=== PATIENT | male | born 1990 | race Caucasian/White ===

== ENCOUNTER → 2017-06-30 | Outpatient (CLI) | payer OTHER ==
--- NOTE | 2017-07-01 11:26 | EST ---
EXERCISE STRESS DATE OF SERVICE: 06/30/2017 AGE: 26 SEX: Male HT: 74 WT: 140 PROTOCOL: Mil STAGE: IV DURATION OF EXERCISE: 9:30 HEART RATE REST: 77 BLOOD PRESSURE REST: 146/82 MAXIMUM HEART RATE ACHIEVED: 177 MAXIMUM BLOOD PRESSURE: 183/82 85% MPHR: 167 100% MPHR: 196 METS: 11.1 INDICATIONS: Chest pain. CLINICAL INFORMATION: Patient was exercised for a total period of 9 minutes and 30 seconds. Peak heart rate of 177 was achieved. Maximum blood pressure of 183/82 mmHg was noted. The resting EKG shows normal sinus rhythm with normal OK interval and QRS duration and normal ST-T waves. No ST-segment depression suggestive of ischemia is noted. No dysrhythmias are noted. FINAL IMPRESSION: 1. This exercise test is not suggestive of ischemia. 2. Patient's exercise tolerance is normal. 3. No dysrhythmias are noted. MMODL / IJN: [id number] /
== END | disposition home or self-care (01) ==
LOC: RADNMMAIN 11:01
PROVIDERS: ATTEND Internal Medicine
DX: R07.9 Chest pain, unspecified (principal)
CPT/HCPCS: 93017

== ENCOUNTER 2017-10-20 15:27 | Emergency (ER) | payer OTHER ==
[2017-10-20 16:10] VITALS: RESP 18; TEMP 98.6
--- NOTE | 2017-10-20 16:27 | XR ---
EXAMINATION TYPE: XR chest 2V DATE OF EXAM: 10/20/2017 COMPARISON: 07/02/2001 HISTORY: Chest pain TECHNIQUE: Frontal and lateral views of the chest are obtained. FINDINGS: There is no focal air space opacity. No evidence for pneumothorax. No pleural effusion. The cardiac silhouette size is within normal limits. The osseous structures are grossly intact. IMPRESSION: 1. No acute cardiopulmonary process.
[2017-10-20] MEDS ORDERED: IPRATROPIUM-ALBUTEROL 3 ML NEB INHALATION STA (18:48)
--- NOTE | 2017-10-20 19:10 | ED ---
SOB HPI - General Chief Complaint: Shortness of Breath Stated Complaint: chest pain Time Seen by Provider: 10/20/17 18:44 Source: patient, RN notes reviewed, old records reviewed Mode of arrival: ambulatory Limitations: no limitations - History of Present Illness Initial Comments: This patient is a pleasant 26-year-old male chief complaint of right-sided rib pain whenever he takes a deep breath. He reports that he's been having the symptoms intermittently for the past few months. Patient states that it started again today at 3:00. He denies any nausea or vomiting or abdominal pain. He denies any coughing. Denies any significant shortness of breath only reports that there is some irritation on his right lower rib when he has a deep inhale. Patient otherwise states he is no medical history. He is generally very healthy. - Related Data Previous Rx's Medication Instructions Recorded Albuterol Inhaler [Ventolin Hfa 1 - 2 puff INHALATION Q6HR PRN #1 10/20/17 Inhaler] inhaler Ibuprofen [Motrin] 600 mg PO Q8HR PRN #15 tab 10/20/17 Allergies Allergy/AdvReac Type Severity Reaction Status Date / Time No Known Allergies Allergy Verified 10/20/17 19:02 Review of Systems ROS Statement: Those systems with pertinent positive or pertinent negative responses have been documented in the HPI. ROS Other: All systems not noted in ROS Statement are negative. Past Medical History Additional Past Medical History / Comment(s): chronic migraines and nausea, back pain History of Any Multi-Drug Resistant Organisms: None Reported Past Surgical History: No Surgical Hx Reported Past Psychological History: No Psychological Hx Reported Smoking Status: Current every day smoker Past Alcohol Use History: None Reported Past Drug Use History: Marijuana General Exam - General Exam Comments Initial Comments: This patient is a 26-year-old male. No acute distress. Limitations: no limitations General appearance: alert, in no apparent distress Head exam: Present: atraumatic, normocephalic, normal inspection Eye exam: Present: normal appearance ENT exam: Present: normal exam, mucous membranes moist Neck exam: Present: normal inspection, full ROM. Absent: tenderness, meningismus, lymphadenopathy Respiratory exam: Present: normal lung sounds bilaterally, other (right lower rib tenderess). Absent: respiratory distress, wheezes, rales, rhonchi, stridor Cardiovascular Exam: Present: regular rate, normal rhythm, normal heart sounds. Absent: systolic murmur, diastolic murmur, rubs, gallop, clicks GI/Abdominal exam: Present: soft, normal bowel sounds. Absent: distended, tenderness, guarding, rebound, rigid Extremities exam: Present: normal inspection, full ROM, normal capillary refill. Absent: tenderness, pedal edema, joint swelling, calf tenderness Back exam: Present: normal inspection Neurological exam: Present: alert, oriented X3, CN II-XII intact Psychiatric exam: Present: normal affect, normal mood Skin exam: Present: warm, dry, intact, normal color. Absent: rash Course Vital Signs 10/20/17 10/20/17 10/20/17 16:07 19:20 19:38 Temperature 98.6 F Pulse Rate 69 72 72 Respiratory 18 Rate Blood Pressure 131/78 O2 Sat by Pulse 100 Oximetry 10/20/17 20:03 Temperature Pulse Rate 79 Respiratory 18 Rate Blood Pressure 111/55 O2 Sat by Pulse 99 Oximetry Medical Decision Making - Medical Decision Making This patient is a pleasant 26-year-old male presents emergency from station plate of intermittent right rib pain. Seem to start today at 3:00 today. He is given a breathing treatment reports it seemed to help at this time. He is also concerned of his blood levels he was concerned he may be slightly anemic. Patient's CBC was within normal limits, Compazine has no acute changes. Patient chest x-rays reviewed and negative for any acute process. Discussed at this time at least pain is most is felt to related or possibly slightly asthmatic. We'll discharge him with inhaler. Discussed that he should follow- up with primary care provider as well. All questions were answered and return parameters were discussed. - Lab Data Result diagrams: 10/20/17 19:40 10/20/17 19:40 Lab Results 10/20/17 10/20/17 Range/Units 19:40 19:40 WBC 7.2 (3.8-10.6) k/uL RBC 5.49 (4.30-5.90) m/uL Hgb 15.4 (13.0-17.5) gm/dL Hct 45.5 (39.0-53.0) % MCV 82.9 (80.0-100.0) fL MCH 28.1 (25.0-35.0) pg MCHC 33.8 (31.0-37.0) g/dL RDW 12.2 (11.5-15.5) % Plt Count 225 (150-450) k/uL Neutrophils % 67 % Lymphocytes % 23 % Monocytes % 6 % Eosinophils % 1 % Basophils % 1 % Neutrophils # 4.9 (1.3-7.7) k/uL Lymphocytes # 1.6 (1.0-4.8) k/uL Monocytes # 0.4 (0-1.0) k/uL Eosinophils # 0.1 (0-0.7) k/uL Basophils # 0.0 (0-0.2) k/uL Sodium 142 (137-145) mmol/L Potassium 4.1 (3.5-5.1) mmol/L Chloride 106 (98-107) mmol/L Carbon Dioxide 23 (22-30) mmol/L Anion Gap 13 mmol/L BUN 11 (9-20) mg/dL Creatinine 0.62 L (0.66-1.25) mg/dL Est GFR (CKD-EPI)AfAm >90 (>60 ml/min/1.73 sqM) Est GFR (CKD-EPI)NonAf >90 (>60 ml/min/1.73 sqM) Glucose 94 (74-99) mg/dL Calcium 10.1 (8.4-10.2) mg/dL Total Bilirubin 0.7 (0.2-1.3) mg/dL AST 22 (17-59) U/L ALT 32 (21-72) U/L Alkaline Phosphatase 57 (38-126) U/L Total Protein 7.5 (6.3-8.2) g/dL Albumin 4.7 (3.5-5.0) g/dL - Radiology Data Radiology results: report reviewed Chest x-ray is reviewed and negative for any acute process. Disposition Clinical Impression: Right-sided chest pain Disposition: HOME SELF-CARE Condition: Good Instructions: Chest Wall Pain (ED), Bronchospasm (ED) Additional Instructions: Patient advised to follow-up with primary care provider. Return to emergency department if any alarming signs or symptoms occur. Prescriptions: Albuterol Inhaler [Ventolin Hfa Inhaler] 1 - 2 puff INHALATION Q6HR PRN #1 inhaler PRN Reason: short of breath Ibuprofen [Motrin] 600 mg PO Q8HR PRN #15 tab PRN Reason: Pain Referrals: So Bueno MD [Primary Care Provider] - 1-2 days Time of Disposition: 20:33
[2017-10-20 19:51] LABS: Basophils % (A) 1 %; Eosinophils # (A) 0.1 k/uL (0-0.7); Eosinophils % (A) 1 %; HCT 45.5 % (39.0-53.0); HGB 15.4 gm/dL (13.0-17.5); Lymphocytes # (A) 1.6 k/uL (1.0-4.8); Lymphocytes % (A) 23 %; MCH 28.1 pg (25.0-35.0); MCHC 33.8 g/dL (31.0-37.0); MCV 82.9 fL (80.0-100.0); Mean Platelet Volume 6.8; Monocytes # (A) 0.4 k/uL (0-1.0); Monocytes % (A) 6 %; Neutrophils # (A) 4.9 k/uL (1.3-7.7); Neutrophils % (A) 67 %; Platelet Count 225 k/uL (150-450); RBC 5.49 m/uL (4.30-5.90); RDW 12.2 % (11.5-15.5); WBC 7.2 k/uL (3.8-10.6)
[2017-10-20 20:00] LABS: ALT 32 U/L (21-72); AST 22 U/L (17-59); Albumin 4.7 g/dL (3.5-5.0); Alkaline Phosphatase 57 U/L (38-126); Anion Gap 13 mmol/L; Blood Urea Nitrogen 11 mg/dL (9-20); Calcium 10.1 mg/dL (8.4-10.2); Carbon Dioxide 23 mmol/L (22-30); Chloride 106 mmol/L (98-107); Glucose 94 mg/dL (74-99); Potassium 4.1 mmol/L (3.5-5.1); Sodium 142 mmol/L (137-145); Total Bilirubin 0.7 mg/dL (0.2-1.3); Total Protein 7.5 g/dL (6.3-8.2)
[2017-10-20 20:04] VITALS: BP 111/55; PULSE 79
== END 2017-10-20 20:44 | disposition home or self-care (01) ==
LOC: EC 15:27
DX: R07.81 Pleurodynia (principal); R06.02 Shortness of breath; F17.200 Nicotine dependence, unspecified, uncomplicated
CPT/HCPCS: 36415; 71046; 80053; 85025; 94640; 99285

== ENCOUNTER 2018-07-18 07:02 | Emergency (ER) | payer OTHER ==
--- NOTE | 2018-07-18 07:46 | XR ---
EXAMINATION TYPE: XR chest 2V DATE OF EXAM: 07/18/2018 HISTORY: cough. REFERENCE: Previous study dated 10/20/2017. FINDINGS: The lungs are clear. Pleural space are clear. The heart is not enlarged. IMPRESSION: NORMAL CHEST.
--- NOTE | 2018-07-18 07:51 | ED ---
General Adult HPI - General Chief complaint: Chest Pain Stated complaint: left side pain Time Seen by Provider: 07/18/18 07:14 Source: patient, RN notes reviewed Mode of arrival: ambulatory Limitations: no limitations - History of Present Illness Initial comments: Patient is a 27-year-old male with no significant past medical history, presenting to the emergency room today with chief complaint of left chest pain. Patient states that pain started yesterday morning after waking up. States he was just sitting when he began to feel it. He states the pain seems to come and go. Describes it as a "sharp" type pain. States located in the left axilla area. Patient denies any injury or any trauma. Does admit that is worse with certain movements or on palpation. Patient denies any other complaints or symptoms. Patient denies any recent fever, chills, shortness of breath, back pain, abdominal pain, nausea or vomiting, numbness or tingling, headaches or visual changes, or any other complaints. - Related Data Previous Rx's Medication Instructions Recorded Albuterol Inhaler [Ventolin Hfa 1 - 2 puff INHALATION Q6HR PRN #1 10/20/17 Inhaler] inhaler Ibuprofen [Motrin] 600 mg PO Q8HR PRN #15 tab 10/20/17 Ibuprofen [Motrin] 600 mg PO Q6HR PRN #40 day 07/18/18 Ketoconazole [Ketoconazole 2%] 1 applic TOPICAL BID #1 tube 07/18/18 Allergies Allergy/AdvReac Type Severity Reaction Status Date / Time No Known Allergies Allergy Verified 07/18/18 07:11 Review of Systems ROS Statement: Those systems with pertinent positive or pertinent negative responses have been documented in the HPI. ROS Other: All systems not noted in ROS Statement are negative. Past Medical History Additional Past Medical History / Comment(s): chronic migraines and nausea, back pain History of Any Multi-Drug Resistant Organisms: None Reported Past Surgical History: No Surgical Hx Reported Past Psychological History: No Psychological Hx Reported Smoking Status: Current every day smoker Past Alcohol Use History: None Reported Past Drug Use History: Marijuana General Exam - General Exam Comments Initial Comments: General: The patient is awake and alert, in no distress, and does not appear acutely ill. Eye: Pupils are equal, round and reactive to light, extra-ocular movements are intact. No nystagmus. There is normal conjunctiva bilaterally. No signs of icterus. Ears, nose, mouth and throat: There are moist mucous membranes and no oral lesions. Neck: The neck is supple, there is no tenderness or JVD. Cardiovascular: There is a regular rate and rhythm. No murmur, rub or gallop is appreciated. Respiratory: Lungs are clear to auscultation, respirations are non-labored, breath sounds are equal. No wheezes, stridor, rales, or rhonchi. Musculoskeletal: Normal ROM. Tender to palpation over the left side of the axilla approximately the fourth rib area laterally.. Strength 5/5. Sensation intact. Pulses equal bilaterally 2+. Neurological: A&O x 3. CN II-XII intact, There are no obvious motor or sensory deficits. Coordination appears grossly intact. Speech is normal. Skin: Skin is warm and dry and intact. Patient does have circular lesion seen to the right upper extremity and also faintly to the left side of the chest wall. It is red scaly patch. Psychiatric: Cooperative, appropriate mood & affect, normal judgment. Limitations: no limitations Course Vital Signs 07/18/18 07:08 Temperature 97.8 F Pulse Rate 84 Respiratory 20 Rate Blood Pressure 129/86 O2 Sat by Pulse 99 Oximetry EKG Findings - EKG Comments: EKG Findings:: EKG performed at 0718: Shows normal sinus rhythm at 64 bpm. AK interval 126. QRS 82. QT/QTC 368/379. No acute ST change. Medical Decision Making - Medical Decision Making Patient's x-ray reviewed negative for any acute abnormalities. Since labs reviewed. EKG showing no acute changes. Patient's pain reproduced on palpation. Patient feeling better after Toradol. Patient will be discharged home continue anti-inflammatories. - Lab Data Result diagrams: 07/18/18 08:06 07/18/18 08:06 Lab Results 07/18/18 07/18/18 07/18/18 Range/Units 08:06 08:06 08:06 WBC 5.0 (3.8-10.6) k/uL RBC 5.83 (4.30-5.90) m/uL Hgb 16.5 (13.0-17.5) gm/dL Hct 49.0 (39.0-53.0) % MCV 84.1 (80.0-100.0) fL MCH 28.4 (25.0-35.0) pg MCHC 33.7 (31.0-37.0) g/dL RDW 12.5 (11.5-15.5) % Plt Count 310 (150-450) k/uL Neutrophils % 68 % Lymphocytes % 21 % Monocytes % 6 % Eosinophils % 2 % Basophils % 1 % Neutrophils # 3.4 (1.3-7.7) k/uL Lymphocytes # 1.1 (1.0-4.8) k/uL Monocytes # 0.3 (0-1.0) k/uL Eosinophils # 0.1 (0-0.7) k/uL Basophils # 0.1 (0-0.2) k/uL Sodium 141 (137-145) mmol/L Potassium 5.0 (3.5-5.1) mmol/L Chloride 107 (98-107) mmol/L Carbon Dioxide 27 (22-30) mmol/L Anion Gap 7 mmol/L BUN 11 (9-20) mg/dL Creatinine 0.76 (0.66-1.25) mg/dL Est GFR (CKD-EPI)AfAm >90 (>60 ml/min/1.73 sqM) Est GFR (CKD-EPI)NonAf >90 (>60 ml/min/1.73 sqM) Glucose 93 (74-99) mg/dL Calcium 10.3 H (8.4-10.2) mg/dL Total Creatine Kinase 32 L (55-170) U/L CK-MB (CK-2) <0.2 (0.0-2.4) ng/mL CK-MB (CK-2) Rel Index Troponin I <0.012 (0.000-0.034) ng/mL Disposition Clinical Impression: Chest wall pain, Tinea corporis Disposition: HOME SELF-CARE Condition: Good Instructions: Chest Wall Pain (ED) Additional Instructions: Please use medication as discussed. Please follow-up with family doctor in the next 2 days. Please return to emergency room if the symptoms increase or worsen or for any other concerns. Prescriptions: Ibuprofen [Motrin] 600 mg PO Q6HR PRN #40 day PRN Reason: Pain Ketoconazole [Ketoconazole 2%] 1 applic TOPICAL BID #1 tube Is patient prescribed a controlled substance at d/c from ED?: No Referrals: So Bueno MD [Primary Care Provider] - 1-2 days Time of Disposition: 09:58
[2018-07-18] MEDS ORDERED: KETOROLAC 30 MG/ML 1 ML VIAL IVP STA (07:52)
[2018-07-18 08:45] LABS: Basophils # (A) 0.1 k/uL (0-0.2); Basophils % (A) 1 %; Eosinophils # (A) 0.1 k/uL (0-0.7); Eosinophils % (A) 2 %; HGB 16.5 gm/dL (13.0-17.5); Lymphocytes # (A) 1.1 k/uL (1.0-4.8); Lymphocytes % (A) 21 %; MCH 28.4 pg (25.0-35.0); MCHC 33.7 g/dL (31.0-37.0); MCV 84.1 fL (80.0-100.0); Mean Platelet Volume 6.6; Monocytes # (A) 0.3 k/uL (0-1.0); Monocytes % (A) 6 %; Neutrophils # (A) 3.4 k/uL (1.3-7.7); Neutrophils % (A) 68 %; Platelet Count 310 k/uL (150-450); RBC 5.83 m/uL (4.30-5.90); RDW 12.5 % (11.5-15.5)
[2018-07-18 08:57] LABS: Anion Gap 7 mmol/L; Blood Urea Nitrogen 11 mg/dL (9-20); Calcium 10.3 mg/dL (8.4-10.2); Carbon Dioxide 27 mmol/L (22-30); Chloride 107 mmol/L (98-107); Glucose 93 mg/dL (74-99); Sodium 141 mmol/L (137-145)
[2018-07-18 09:16] LABS: Creatine Kinase 32 U/L (55-170)
[2018-07-18 09:29] LABS: Creatine Kinase MB <0.2 ng/mL (0.0-2.4); Troponin I <0.012 ng/mL (0.000-0.034)
[2018-07-18 10:17] VITALS: BP 128/94; PULSE 75; RESP 16; TEMP 98
== END 2018-07-18 10:17 | disposition home or self-care (01) ==
LOC: EC 07:02
DX: R07.89 Other chest pain (principal); B35.4 Tinea corporis; F17.200 Nicotine dependence, unspecified, uncomplicated
CPT/HCPCS: 36415; 93005; 80048; 82550; 82553; 84484; 85025; 71046; 99285; 96374; J1885

== ENCOUNTER 2022-07-28 12:17 | Emergency (ER) | payer OTHER ==
[2022-07-28 12:42] VITALS: RESP 16
--- NOTE | 2022-07-28 12:51 | ED ---
General Adult HPI - General Chief complaint: Extremity Injury, Upper Stated complaint: Hand injury Time Seen by Provider: 07/28/22 12:44 Source: patient, RN notes reviewed Mode of arrival: ambulatory Limitations: no limitations - History of Present Illness Initial comments: 31-year-old male with no significant past medical history presents to the emergency department with right hand pain after he tripped and fell versus This morning. He notes he tripped approximately 30 minutes prior to arrival. He has not tried Tylenol or Motrin. Range of motion secondary to pain. Denies numbness tingling. Denies hitting his head, loss of consciousness, anticoagulant use - Related Data Previous Rx's Medication Instructions Recorded Albuterol Inhaler [Ventolin Hfa 1 - 2 puff INHALATION Q6HR PRN #1 10/20/17 Inhaler] inhaler Ibuprofen [Motrin] 600 mg PO Q8HR PRN #15 tab 10/20/17 Ibuprofen [Motrin] 600 mg PO Q6HR PRN #40 day 07/18/18 Ketoconazole [Ketoconazole 2%] 1 applic TOPICAL BID #1 tube 07/18/18 Allergies Allergy/AdvReac Type Severity Reaction Status Date / Time No Known Allergies Allergy Verified 07/28/22 12:40 Review of Systems ROS Statement: Those systems with pertinent positive or pertinent negative responses have been documented in the HPI. ROS Other: All systems not noted in ROS Statement are negative. Past Medical History Additional Past Medical History / Comment(s): chronic migraines and nausea, back pain History of Any Multi-Drug Resistant Organisms: None Reported Past Surgical History: No Surgical Hx Reported Past Psychological History: No Psychological Hx Reported Past Alcohol Use History: None Reported Past Drug Use History: Marijuana General Exam Limitations: no limitations General appearance: alert, in no apparent distress Head exam: Present: atraumatic, normocephalic, normal inspection Eye exam: Present: normal appearance, PERRL, EOMI. Absent: scleral icterus, conjunctival injection, periorbital swelling ENT exam: Present: normal exam, mucous membranes moist Neck exam: Present: normal inspection. Absent: tenderness, meningismus, lymphadenopathy Respiratory exam: Present: normal lung sounds bilaterally. Absent: respiratory distress, wheezes, rales, rhonchi, stridor Cardiovascular Exam: Present: regular rate, normal rhythm, normal heart sounds. Absent: systolic murmur, diastolic murmur, rubs, gallop, clicks GI/Abdominal exam: Present: soft, normal bowel sounds. Absent: distended, tenderness, guarding, rebound, rigid Extremities exam: Present: normal capillary refill. Absent: normal inspection (R hand with edema to 5th metacarpal, tenderness to palpation, limited ROM secondary to pain. 2+ radial pulses, distal NVI. No crepitus. ), full ROM, tenderness, pedal edema, joint swelling, calf tenderness Back exam: Present: normal inspection Neurological exam: Present: alert, oriented X3, CN II-XII intact Psychiatric exam: Present: normal affect, normal mood Skin exam: Present: warm, dry, intact, normal color. Absent: rash Course Vital Signs 07/28/22 12:41 Temperature 97.9 F Pulse Rate 78 Respiratory 16 Rate Blood Pressure 135/88 O2 Sat by Pulse 97 Oximetry Disposition Clinical Impression: Closed boxer's fracture, Fracture of fifth metacarpal bone of right hand Disposition: HOME SELF-CARE Condition: Stable Additional Instructions: These return to the nearest ER if worsening symptoms of numbness pain Is patient prescribed a controlled substance at d/c from ED?: No Referrals: So Bueno MD [Primary Care Provider] - 1-2 days Reggie Lopez MD [Medical Doctor] - 1-2 days Time of Disposition: 13:30
[2022-07-28] MEDS ORDERED: ACETAMINOPHEN TAB 325 MG TAB PO STA (13:15)
--- NOTE | 2022-07-28 13:15 | XR ---
EXAMINATION TYPE: XR hand complete RT DATE OF EXAM: 07/28/2022 COMPARISON: None HISTORY: Fall on outstretched hand TECHNIQUE: 3 view right hand FINDINGS: There is a distal metadiaphyseal fifth metacarpal fracture with anterior angulation. Hallett ing soft tissue swelling is present. No additional areas suspicious for fractures evident. IMPRESSION: 1. Fracture of the distal fifth metacarpal with anterior angulation of the distal fracture fragment.
[2022-07-28 13:40] VITALS: BP 138/88; PULSE 74; TEMP 98.5
== END 2022-07-28 13:40 | disposition home or self-care (01) ==
LOC: EC 12:17
DX: S62.306A Unspecified fracture of fifth metacarpal bone, right hand, initial encounter for closed fracture (principal); F12.90 Cannabis use, unspecified, uncomplicated; W01.0XXA Fall on same level from slipping, tripping and stumbling without subsequent striking against object, initial encounter
CPT/HCPCS: 29125; 99283

== ENCOUNTER 2022-12-11 20:49 | Emergency (ER) | payer OTHER ==
[2022-12-11 21:00] VITALS: BP 147/82; PULSE 73; RESP 18; TEMP 98.3
--- NOTE | 2022-12-11 21:42 | XR ---
EXAMINATION TYPE: XR chest 2V DATE OF EXAM: 12/11/2022 9:31 PM COMPARISON: Chest radiographs from 07/18/2018 TECHNIQUE: XR chest 2V Frontal and lateral views of the chest. CLINICAL INDICATION:Male, 32 years old with history of fell; FINDINGS: Lungs/Pleura: There is no evidence of pleural effusion, focal consolidation, or pneumothorax. Pulmonary vascularity: Unremarkable. Heart/mediastinum: Cardiomediastinal silhouette is unremarkable. Musculoskeletal: No acute osseous pathology. IMPRESSION: No acute cardiopulmonary disease/process.
--- NOTE | 2022-12-11 22:11 | ED ---
General Adult HPI - General Chief complaint: Shortness of Breath Stated complaint: chest pain Time Seen by Provider: 12/11/22 22:06 Source: patient Mode of arrival: ambulatory Limitations: no limitations - History of Present Illness Initial comments: Patient is a 32-year-old male presenting with chief complaint of left-sided rib pain. Patient states that earlier today he fell and hit the left side of his ribs on his washing machine. He is having pain with deep breaths. He has not taken any analgesic medication. He is having no shortness of breath. No palpitations. - Related Data Previous Rx's Medication Instructions Recorded Albuterol Inhaler [Ventolin Hfa 1 - 2 puff INHALATION Q6HR PRN #1 10/20/17 Inhaler] inhaler Ibuprofen [Motrin] 600 mg PO Q8HR PRN #15 tab 10/20/17 Ibuprofen [Motrin] 600 mg PO Q6HR PRN #40 day 07/18/18 Ketoconazole [Ketoconazole 2%] 1 applic TOPICAL BID #1 tube 07/18/18 Allergies Allergy/AdvReac Type Severity Reaction Status Date / Time No Known Allergies Allergy Verified 12/11/22 21:00 Review of Systems ROS Statement: Those systems with pertinent positive or pertinent negative responses have been documented in the HPI. ROS Other: All systems not noted in ROS Statement are negative. Past Medical History Additional Past Medical History / Comment(s): chronic migraines and nausea, back pain History of Any Multi-Drug Resistant Organisms: None Reported Past Surgical History: No Surgical Hx Reported Past Psychological History: No Psychological Hx Reported Smoking Status: Never smoker Past Alcohol Use History: None Reported Past Drug Use History: Marijuana General Exam Limitations: no limitations General appearance: alert, in no apparent distress Head exam: Present: atraumatic, normocephalic, normal inspection Eye exam: Present: normal appearance, EOMI. Absent: scleral icterus, periorbital swelling Neck exam: Present: normal inspection, full ROM Respiratory exam: Present: normal lung sounds bilaterally, chest wall tenderness. Absent: respiratory distress, wheezes, rales, rhonchi, stridor Cardiovascular Exam: Present: regular rate, normal rhythm, normal heart sounds. Absent: systolic murmur, diastolic murmur, rubs, gallop, clicks Neurological exam: Present: alert, oriented X3, CN II-XII intact Psychiatric exam: Present: normal affect, normal mood Skin exam: Present: warm, dry, intact, normal color. Absent: rash Course Vital Signs 12/11/22 20:57 Temperature 98.3 F Pulse Rate 73 Respiratory 18 Rate Blood Pressure 147/82 O2 Sat by Pulse 98 Oximetry Medical Decision Making - Medical Decision Making Was pt. sent in by a medical professional or institution (, PA, DEVELOPMENT ASSOCIATE, urgent care, hospital, or senior living...) When possible be specific @ -No Did you speak to anyone other than the patient for history (EMS, parent, family, police, friend...)? What history was obtained from this source @ -No Did you review nursing and triage notes (agree or disagree)? Why? @ -I reviewed and agree with nursing and triage notes Were old charts reviewed (outside hosp., previous admission, EMS record, old EKG, old radiological studies, urgent care reports/EKG's, senior living records)? Report findings @ -No old charts were reviewed Differential Diagnosis (chest pain, altered mental status, abdominal pain women, abdominal pain men, vaginal bleeding, weakness, fever, dyspnea, syncope, headache, dizziness, GI bleed, back pain, seizure, CVA, palpatations, mental health, musculoskeletal)? @ -Differential Musculoskeletal Muscular strain, contusion, ligament sprain, fracture, arthritis, septic arthritis, bursitis, cellulitis, muscle spasm, nerve compression, DVT, arterial occlusion, herpes zoster, electrolyte abnormality, tumor.... This is not meant to be in all inclusive list EKG interpreted by me (3pts min.). @ -As above X-rays interpreted by me (1pt min.). @ -X-rays negative for any fracture or acute process CT interpreted by me (1pt min.). @ -None done U/S interpreted by me (1pt. min.). @ -None done What testing was considered but not performed or refused? (CT, X-rays, U/S, labs)? Why? @ -None What meds were considered but not given or refused? Why? @ -None Did you discuss the management of the patient with other professionals (professionals i.e. , CRISTINA, DEVELOPMENT ASSOCIATE, lab, RT, psych nurse, licensed social worker, bag shop worker, teacher, telecommunications officer, correctional case manager)? Give summary @ -No Was smoking cessation discussed for >3mins.? @ -No Was critical care preformed (if so, how long)? @ -No Were there social determinants of health that impacted care today? How? (Homelessness, low income, unemployed, alcoholism, drug addiction, transportation, low edu. Level, literacy, decrease access to med. care, senior living, rehab)? @ -No Was there de-escalation of care discussed even if they declined (Discuss DNR or withdrawal of care, Hospice)? DNR status @ -No What co-morbidities impacted this encounter? (DM, HTN, Smoking, COPD, CAD, Cancer, CVA, ARF, Chemo, Hep., AIDS, mental health diagnosis, sleep apnea, morbid obesity)? @ -None Was patient admitted / discharged? Hospital course, mention meds given and route, prescriptions, significant lab abnormalities, going to OR and other pertinent info. @ -Patient is a 32-year-old male presenting with chief complaint of left-sided rib pain after falling into his washing machine this evening. Physical examination shows chest wall tenderness. Normal lung sounds bilaterally. X-ray shows no evidence of fracture or dislocation. Patient is educated on supportive management at home. Follow-up with PCP. Report back to ER with any new or worsening symptoms. Discussed return parameters and answered all questions. Patient conveyed verbal understanding and agreed to the plan. I discussed this case in detail with my attending Dr. Joseph Undiagnosed new problem with uncertain prognosis? @ -No Drug Therapy requiring intensive monitoring for toxicity (Heparin, Nitro, Insulin, Cardizem)? @ -No Were any procedures done? @ -no Diagnosis/symptom? @ -Rib pain Acute, or Chronic, or Acute on Chronic? @ -Acute Uncomplicated (without systemic symptoms) or Complicated (systemic symptoms)? @ -Uncomplicated Side effects of treatment? @ -No Exacerbation, Progression, or Severe Exacerbation? @ -No Poses a threat to life or bodily function? How? (Chest pain, [place], [place], pneumonia, PE, COPD, DKA, ARF, appy, cholecystitis, CVA, Diverticulitis, Homicidal, Suicidal, threat to staff... and all critical care pts) @ -No Disposition Clinical Impression: Rib pain Disposition: HOME SELF-CARE Condition: Good Instructions (If sedation given, give patient instructions): Rib Fracture (ED) Additional Instructions: Follow-up with PCP. Report back to ER with any new or worsening symptoms. Take Motrin and Tylenol as needed for pain control. Is patient prescribed a controlled substance at d/c from ED?: No Referrals: Lamberto Albert MD [Primary Care Provider] - 1-2 days Time of Disposition: 22:11
[2022-12-11] MEDS ORDERED: LIDOCAINE 5% PATCH TOPICAL SCH (22:15)
== END 2022-12-11 22:41 | disposition home or self-care (01) ==
LOC: EC 20:49
DX: R07.81 Pleurodynia (principal); F12.90 Cannabis use, unspecified, uncomplicated
CPT/HCPCS: 71046; 99284

== ENCOUNTER 2023-04-29 01:47 | Emergency (ER) | payer OTHER ==
[2023-04-29 01:55] VITALS: BP 110/62; PULSE 59; RESP 20; TEMP 98.2
[2023-04-29] MEDS ORDERED: ONDANSETRON 4 MG/2 ML VIAL IVP STA (02:18)
[2023-04-29] MEDS ORDERED: SODIUM CHLORIDE 0.9% 1,000 ML IV STA (02:18)
[2023-04-29] MEDS ORDERED: FAMOTIDINE 20 MG/2 ML VIAL IV STA (02:19)
--- NOTE | 2023-04-29 02:21 | ED ---
Nausea/Vomiting/Diarrhea HPI - General Chief complaint: Nausea/Vomiting/Diarrhea Stated complaint: nausea and vomiting Time Seen by Provider: 04/29/23 02:15 Source: patient, RN notes reviewed Mode of arrival: ambulatory Limitations: no limitations - History of Present Illness Initial comments: This is a 32-year-old male who presents to the emergency department for nausea and vomiting. States that the symptoms started early this morning. He has generalized abdominal discomfort from all the vomiting, but otherwise denies any specific abdominal pain. Denies any sick contacts. Also denies any contacts with any new foods. Denies any changes in bowel/bladder habits or fevers/chills. MD complaint: nausea, vomiting - Related Data Previous Rx's Medication Instructions Recorded Albuterol Inhaler [Ventolin Hfa 1 - 2 puff INHALATION Q6HR PRN #1 10/20/17 Inhaler] inhaler Ibuprofen [Motrin] 600 mg PO Q8HR PRN #15 tab 10/20/17 Ibuprofen [Motrin] 600 mg PO Q6HR PRN #40 day 07/18/18 Ketoconazole [Ketoconazole 2%] 1 applic TOPICAL BID #1 tube 07/18/18 Ondansetron Odt [Zofran Odt] 4 mg PO Q8HR PRN #20 tab 04/29/23 Allergies Allergy/AdvReac Type Severity Reaction Status Date / Time No Known Allergies Allergy Verified 04/29/23 01:53 Review of Systems ROS Statement: Those systems with pertinent positive or pertinent negative responses have been documented in the HPI. ROS Other: All systems not noted in ROS Statement are negative. Past Medical History Additional Past Medical History / Comment(s): chronic migraines and nausea, back pain History of Any Multi-Drug Resistant Organisms: None Reported Past Surgical History: No Surgical Hx Reported Past Psychological History: No Psychological Hx Reported Smoking Status: Current every day smoker Past Alcohol Use History: None Reported Past Drug Use History: Marijuana General Exam Limitations: no limitations General appearance: alert, in no apparent distress Head exam: Present: atraumatic, normocephalic, normal inspection Respiratory exam: Present: normal lung sounds bilaterally. Absent: respiratory distress, wheezes, rales, rhonchi, stridor Cardiovascular Exam: Present: regular rate, normal rhythm, normal heart sounds. Absent: systolic murmur, diastolic murmur, rubs, gallop, clicks GI/Abdominal exam: Present: soft, normal bowel sounds. Absent: distended, tenderness, guarding, rebound, rigid Neurological exam: Present: alert, oriented X3, CN II-XII intact Psychiatric exam: Present: normal affect, normal mood Skin exam: Present: warm, dry, intact, normal color. Absent: rash Course Vital Signs 04/29/23 01:51 Temperature 98.2 F Pulse Rate 59 L Respiratory 20 Rate Blood Pressure 110/62 O2 Sat by Pulse 97 Oximetry Medical Decision Making - Medical Decision Making This is a 32-year-old male who presents to the emergency department for nausea and vomiting. Was pt. sent in by a medical professional or institution? @ -No Did you speak to anyone other than the patient for history? @ -No Did you review nursing and triage notes? @ -Yes, and I agree, it is accurate with regards to the patient's symptoms. Were old charts reviewed? @ -No Differential Diagnosis? @ -Differential Nausea and Vomiting: Gastroenteritis, cholecystitis, appendicitis, pancreatitis, migraine, benign positional vertigo, food borne illness, pyelonephritis, irritable bowel syn drome, influenza, Covid, GERD, incarcerated hernia, intestinal obstruction, this is not meant to be an all-inclusive list. EKG interpreted by me (3pts min.)? @ -Not obtained X-rays interpreted by me (1pt min.)? @ -Not obtained CT interpreted by me (1pt min.)? @ -Not obtained U/S interpreted by me (1pt. min.)? @ -Not obtained What testing was considered but not performed? (CT, X-rays, U/S, labs)? Why? @ -None What meds were considered but not given? Why? @ -None Did you discuss the management of the patient with other professionals? @ -No Did you reconcile home meds? @ -No Was smoking cessation discussed for >3mins.? @ -No Was critical care preformed (if so, how long)? @ -No Were there social determinants of health that impacted care today? How? (Homelessness, low income, unemployed, alcoholism, drug addiction, transportation, low edu. Level, literacy, decrease access to med. care, senior care, rehab)? @ -No Was there de-escalation of care discussed even if they declined? (Discuss DNR or withdrawal of care, Hospice)? @ -No What co-morbidities impacted this encounter? (DM, HTN, Smoking, COPD, CAD, C ancer, CVA, Hep., AIDS, mental health diagnosis, sleep apnea, morbid obesity)? @ -None Was patient admitted / discharged? @ -Discharged. Lab work obtained and found to be nonactionable. Patient given a liter bolus of IV fluids, Zofran, and Pepcid, with significant relief in symptoms, and he requested discharge home. Prescription for Zofran provided with dosing instructions reviewed. He is otherwise advised to slowly advance his diet as tolerated and remain well-hydrated. Undiagnosed new problem with uncertain prognosis? @ -None Drug Therapy requiring intensive monitoring for toxicity (Heparin, Nitro, Insulin, Cardizem)? @ -None Were any procedures done? @ -None Diagnosis/symptom? @ -Nausea and vomiting Acute, or Chronic, or Acute on Chronic? @ -Acute Uncomplicated (without systemic symptoms) or Complicated (systemic symptoms)? @ -Uncomplicated Side effects of treatment? @ -None Exacerbation, Progression, or Severe Exacerbation] @ -Not applicable Poses a threat to life or bodily function? @ -No Return precautions reviewed in depth, the patient is instructed to return to the emergency department with any new, worsening, or concerning symptoms. Patient verbalized understanding. This case was discussed in detail with the attending ED physician, Dr. Joseph. Presentation, findings, and treatment plan discussed in detail as well. - Lab Data Result diagrams: 04/29/23 02:31 04/29/23 02:31 Lab Results 04/29/23 04/29/23 Range/Units 02:31 02:31 WBC 5.8 (3.8-10.6) k/uL RBC 5.12 (4.30-5.90) m/uL Hgb 14.6 (13.0-17.5) gm/dL Hct 43.6 (39.0-53.0) % MCV 85.1 (80.0-100.0) fL MCH 28.6 (25.0-35.0) pg MCHC 33.6 (31.0-37.0) g/dL RDW 12.3 (11.5-15.5) % Plt Count 261 (150-450) k/uL MPV 7.1 Neutrophils % 59 % Lymphocytes % 29 % Monocytes % 7 % Eosinophils % 3 % Basophils % 1 % Neutrophils # 3.4 (1.3-7.7) k/uL Lymphocytes # 1.7 (1.0-4.8) k/uL Monocytes # 0.4 (0-1.0) k/uL Eosinophils # 0.2 (0-0.7) k/uL Basophils # 0.1 (0-0.2) k/uL Sodium 139 (137-145) mmol/L Potassium 4.4 (3.5-5.1) mmol/L Chloride 106 (98-107) mmol/L Carbon Dioxide 27 (22-30) mmol/L Anion Gap 6 mmol/L BUN 14 (9-20) mg/dL Creatinine 0.70 (0.66-1.25) mg/dL Est GFR (CKD-EPI)AfAm >90 (>60 ml/min/1.73 sqM) Est GFR (CKD-EPI)NonAf >90 (>60 ml/min/1.73 sqM) Glucose 81 (74-99) mg/dL Calcium 9.0 (8.4-10.2) mg/dL Total Bilirubin 0.6 (0.2-1.3) mg/dL AST 22 (17-59) U/L ALT 19 (4-49) U/L Alkaline Phosphatase 53 (38-126) U/L Total Protein 7.1 (6.3-8.2) g/dL Albumin 4.2 (3.5-5.0) g/dL Amylase 61 (30-110) U/L Lipase 203 (23-300) U/L Disposition Clinical Impression: Nausea and vomiting Disposition: HOME SELF-CARE Instructions (If sedation given, give patient instructions): Acute Nausea and Vomiting (ED) Additional Instructions: Return to the emergency department with any new, worsening, or concerning symptoms. You can take the Zofran up to every 8 hours as needed for nausea and vomiting. Slowly advance your diet as tolerated and remain well-hydrated. Follow up with your primary care provider in 1-2 days. Prescriptions: Ondansetron Odt [Zofran Odt] 4 mg PO Q8HR PRN #20 tab PRN Reason: Nausea And Vomiting Is patient prescribed a controlled substance at d/c from ED?: No Referrals: Lamberto Albert MD [Primary Care Provider] - 1-2 days
[2023-04-29 03:03] LABS: Basophils # (A) 0.1 k/uL (0-0.2); Basophils % (A) 1 %; Eosinophils # (A) 0.2 k/uL (0-0.7); Eosinophils % (A) 3 %; HCT 43.6 % (39.0-53.0); HGB 14.6 gm/dL (13.0-17.5); Lymphocytes # (A) 1.7 k/uL (1.0-4.8); Lymphocytes % (A) 29 %; MCH 28.6 pg (25.0-35.0); MCHC 33.6 g/dL (31.0-37.0); MCV 85.1 fL (80.0-100.0); Mean Platelet Volume 7.1; Monocytes # (A) 0.4 k/uL (0-1.0); Monocytes % (A) 7 %; Neutrophils # (A) 3.4 k/uL (1.3-7.7); Neutrophils % (A) 59 %; Platelet Count 261 k/uL (150-450); RBC 5.12 m/uL (4.30-5.90); RDW 12.3 % (11.5-15.5); WBC 5.8 k/uL (3.8-10.6)
[2023-04-29 03:12] LABS: ALT 19 U/L (4-49); AST 22 U/L (17-59); African American GFR (CKD) >90 (>60 ml/min/1.73 sqM); Albumin 4.2 g/dL (3.5-5.0); Alkaline Phosphatase 53 U/L (38-126); Amylase 61 U/L (30-110); Anion Gap 6 mmol/L; Blood Urea Nitrogen 14 mg/dL (9-20); Carbon Dioxide 27 mmol/L (22-30); Chloride 106 mmol/L (98-107); Glucose 81 mg/dL (74-99); Lipase 203 U/L (23-300); Non-African American GFR(CKD) >90 (>60 ml/min/1.73 sqM); Potassium 4.4 mmol/L (3.5-5.1); Sodium 139 mmol/L (137-145); Total Bilirubin 0.6 mg/dL (0.2-1.3); Total Protein 7.1 g/dL (6.3-8.2)
[2023-04-29] MEDS ORDERED: ONDANSETRON 4 MG ODT STARTER PACK 2 TAB BTL PO STA (03:30)
== END 2023-04-29 03:55 | disposition home or self-care (01) ==
LOC: EC 01:47
DX: R11.2 Nausea with vomiting, unspecified (principal); F17.200 Nicotine dependence, unspecified, uncomplicated; F12.90 Cannabis use, unspecified, uncomplicated
CPT/HCPCS: 36415; 80053; 82150; 83690; 85025; 99284; 96374; 96375; 96361; J2405; J3490; S0119

== ENCOUNTER 2024-06-30 19:54 | Emergency (ER) | payer OTHER ==
--- NOTE | 2024-06-30 20:29 | ED ---
Skin/Abscess/FB HPI - General Source: patient, RN notes reviewed Mode of arrival: ambulatory Limitations: no limitations <Suzanne Bruce - Last Filed: 06/30/24 20:28> <Jose Luis Price - Last Filed: 06/30/24 21:53> - General Stated complaint: SKIN INFECTION Time Seen by Provider: 06/30/24 20:28 - History of Present Illness Initial comments: 33-year-old male presented to ER with a chief complaint of a lip infection. Patient states 2 days ago he noticed an increase in swelling to his lower lip. He does report he cut in that area recently. He did also attempt to pop a pimple. No fevers. (Suzanne Bruce) - Related Data Previous Rx's Medication Instructions Recorded Albuterol Inhaler [Ventolin Hfa 1 - 2 puff INHALATION Q6HR PRN #1 10/20/17 Inhaler] inhaler Ibuprofen [Motrin] 600 mg PO Q8HR PRN #15 tab 10/20/17 Ibuprofen [Motrin] 600 mg PO Q6HR PRN #40 day 07/18/18 Ketoconazole [Ketoconazole 2%] 1 applic TOPICAL BID #1 tube 07/18/18 Ondansetron Odt [Zofran Odt] 4 mg PO Q8HR PRN #20 tab 04/29/23 Cephalexin [Keflex] 500 mg PO Q6HR 10 Days #40 cap 06/30/24 Sulfamethox-Tmp 800-160Mg [Bactrim 1 tab PO Q12HR #20 tab 06/30/24 DS 800-160 mg] Allergies Allergy/AdvReac Type Severity Reaction Status Date / Time No Known Allergies Allergy Verified 06/30/24 20:31 Review of Systems ROS Other: All systems not noted in ROS Statement are negative. <Suzanne Bruce - Last Filed: 06/30/24 20:28> ROS Other: All systems not noted in ROS Statement are negative. <Jose Luis Price - Last Filed: 06/30/24 21:53> ROS Statement: Those systems with pertinent positive or pertinent negative responses have been documented in the HPI. Past Medical History Additional Past Medical History / Comment(s): chronic migraines and nausea, back pain History of Any Multi-Drug Resistant Organisms: None Reported Past Surgical History: No Surgical Hx Reported Past Psychological History: No Psychological Hx Reported Smoking Status: Current every day smoker Past Alcohol Use History: None Reported Past Drug Use History: Marijuana <Suzanne Bruce - Last Filed: 06/30/24 20:28> General Exam <Suzanne Bruce - Last Filed: 06/30/24 20:28> General appearance: alert, in no apparent distress Head exam: Present: atraumatic, normocephalic Eye exam: Present: normal appearance, PERRL ENT exam: Present: other (Left lower lip cellulitis and induration no drainable abscess) Respiratory exam: Present: normal lung sounds bilaterally. Absent: respiratory distress Cardiovascular Exam: Present: regular rate, normal rhythm GI/Abdominal exam: Present: soft. Absent: distended, tenderness <Jose Luis Price - Last Filed: 06/30/24 21:53> - General Exam Comments Initial Comments: Visual Physical Exam Vital signs reviewed General: Well-appearing, nontoxic, no acute distress. Head: Normocephalic, atraumatic Eyes: PERRLA, EOMI ENT: Airway patent Chest: Nonlabored breathing Skin: No visual rash, normal skin tone edema to lower lip Neuro: Alert and oriented 3 Musculoskeletal: No gross abnormalities (Suzanne Bruce) Course Vital Signs 06/30/24 20:30 Temperature 98 F Pulse Rate 72 Respiratory 18 Rate Blood Pressure 134/81 O2 Sat by Pulse 98 Oximetry Medical Decision Making <Suzanne Bruce - Last Filed: 06/30/24 20:28> - Lab Data Result diagrams: 06/30/24 20:59 06/30/24 20:59 <Jose Luis Price - Last Filed: 06/30/24 21:53> - Medical Decision Making I performed the quick note portion of this chart. Electronically signed by Suzanne Bruce PA-C (Suzanne Bruce) Was pt. sent in by a medical professional or institution (CRISTINA Nicole, [employer] M[employer]ER, urgent care, hospital, or prison...) When possible be specific @ -No Did you speak to anyone other than the patient for history (EMS, parent, family, police, friend...)? What history was obtained from this source @ -No Did you review nursing and triage notes (agree or disagree)? Why? @ -I reviewed and agree with nursing and triage notes Were old charts reviewed (outside hosp., previous admission, EMS record, old EKG, old radiological studies, urgent care reports/EKG's, prison records)? Report findings @ -No old charts were reviewed Differential Diagnosis dental abscess, facial abscess, facial cellulitis EKG interpreted by me (3pts min.). @ -As above X-rays interpreted by me (1pt min.). @ -None done CT interpreted by me (1pt min.). @ -None done U/S interpreted by me (1pt. min.). @ -None done What testing was considered but not performed or refused? (CT, X-rays, U/S, labs)? Why? @ -None What meds were considered but not given or refused? Why? @ -None Did you discuss the management of the patient with other professionals (professionals i.e. , PA, ORE MIXER, lab, RT, psych nurse, social service technician, mobility specialist, teacher, state wildlife officer, case management specialist)? Give summary @ -No Was smoking cessation discussed for >3mins.? @ -No Was critical care preformed (if so, how long)? @ -No Were there social determinants of health that impacted care today? How? (Homelessness, low income, unemployed, alcoholism, drug addiction, transportation, low edu. Level, literacy, decrease access to med. care, retirement, rehab)? @ -No Was there de-escalation of care discussed even if they declined (Discuss DNR or withdrawal of care, Hospice)? DNR status @ -No What co-morbidities impacted this encounter? (DM, HTN, Smoking, COPD, CAD, Cancer, CVA, ARF, Chemo, Hep., AIDS, mental health diagnosis, sleep apnea, morbid obesity)? @ -None Was patient admitted / discharged? Hospital course, mention meds given and route, prescriptions, significant lab abnormalities, going to OR and other pertinent info. @ -33-year-old male with facial cellulitis after attempting to pop a pimple. There is induration without fluctuance, no drainable abscess currently. The lower lip is involved as well as the chin. Patient is afebrile with a mild leukocytosis. Started on Keflex and Bactrim instructed on warm compresses. He is instructed that he may need to return to the emergency department for incision and drainage. He will take antibiotics as prescribed. Return parameters discussed at length. Undiagnosed new problem with uncertain prognosis? @ -No Drug Therapy requiring intensive monitoring for toxicity (Heparin, Nitro, Insulin, Cardizem)? @ -No Were any procedures done? @ -No Diagnosis/symptom? @ -Facial cellulitis Acute, or Chronic, or Acute on Chronic? @ -Acute Uncomplicated (without systemic symptoms) or Complicated (systemic symptoms)? @ -Default Side effects of treatment? @ -No Exacerbation, Progression, or Severe Exacerbation? @ -No Poses a threat to life or bodily function? How? (Chest pain, [place], [place], pneumonia, PE, COPD, DKA, ARF, appy, cholecystitis, CVA, Diverticulitis, Homicidal, Suicidal, threat to staff... and all critical care pts) @ -No (Jose Luis Price) - Lab Data Lab Results 06/30/24 06/30/24 06/30/24 Range/Units 20:59 20:59 20:59 WBC 13.4 H (3.8-10.6) k/uL RBC 5.52 (4.30-5.90) m/uL Hgb 15.8 (13.0-17.5) gm/dL Hct 47.9 (39.0-53.0) % MCV 86.7 (80.0-100.0) fL MCH 28.7 (25.0-35.0) pg MCHC 33.1 (31.0-37.0) g/dL RDW 12.0 (11.5-15.5) % Plt Count 264 (150-450) k/uL MPV 7.1 Neutrophils % 83 % Lymphocytes % 9 % Monocytes % 6 % Eosinophils % 1 % Basophils % 0 % Neutrophils # 11.1 H (1.3-7.7) k/uL Lymphocytes # 1.2 (1.0-4.8) k/uL Monocytes # 0.8 (0-1.0) k/uL Eosinophils # 0.1 (0-0.7) k/uL Basophils # 0.0 (0-0.2) k/uL Sodium 140 (137-145) mmol/L Potassium 4.1 (3.5-5.1) mmol/L Chloride 104 (98-107) mmol/L Carbon Dioxide 26 (22-30) mmol/L Anion Gap 10 mmol/L BUN 13 (9-20) mg/dL Creatinine 0.67 (0.66-1.25) mg/dL Est GFR (CKD-EPI)AfAm >90 (>60 ml/min/1.73 sqM) Est GFR (CKD-EPI)NonAf >90 (>60 ml/min/1.73 sqM) Glucose 99 (74-99) mg/dL Plasma Lactic Acid Alek 1.3 (0.7-2.0) mmol/L Calcium 9.5 (8.4-10.2) mg/dL Total Bilirubin 1.0 (0.2-1.3) mg/dL AST 20 (17-59) U/L ALT 14 (4-49) U/L Alkaline Phosphatase 79 (38-126) U/L Total Protein 8.1 (6.3-8.2) g/dL Albumin 4.9 (3.5-5.0) g/dL Disposition <Suzanne Bruce - Last Filed: 06/30/24 20:28> Is patient prescribed a controlled substance at d/c from ED?: No Time of Disposition: 21:52 <Jose Luis Price - Last Filed: 06/30/24 21:53> Clinical Impression: Cellulitis Disposition: HOME SELF-CARE Condition: Good Instructions (If sedation given, give patient instructions): Cellulitis (ED) Additional Instructions: Please apply warm compresses. Please monitor for worsening swelling, worsening redness. Please return as needed. Prescriptions: Sulfamethox-Tmp 800-160Mg [Bactrim DS 800-160 mg] 1 tab PO Q12HR #20 tab Cephalexin [Keflex] 500 mg PO Q6HR 10 Days #40 cap Referrals: Lamberto Albert MD [Primary Care Provider] - 1-2 days
[2024-06-30 20:31] VITALS: RESP 18; TEMP 98
[2024-06-30 21:36] LABS: Basophils % (A) 0 %; Eosinophils # (A) 0.1 k/uL (0-0.7); Eosinophils % (A) 1 %; HCT 47.9 % (39.0-53.0); HGB 15.8 gm/dL (13.0-17.5); Lymphocytes # (A) 1.2 k/uL (1.0-4.8); Lymphocytes % (A) 9 %; MCH 28.7 pg (25.0-35.0); MCHC 33.1 g/dL (31.0-37.0); MCV 86.7 fL (80.0-100.0); Mean Platelet Volume 7.1; Monocytes # (A) 0.8 k/uL (0-1.0); Monocytes % (A) 6 %; Neutrophils # (A) 11.1 k/uL (1.3-7.7); Neutrophils % (A) 83 %; Platelet Count 264 k/uL (150-450); RBC 5.52 m/uL (4.30-5.90); WBC 13.4 k/uL (3.8-10.6)
[2024-06-30 21:49] LABS: ALT 14 U/L (4-49); AST 20 U/L (17-59); African American GFR (CKD) >90 (>60 ml/min/1.73 sqM); Albumin 4.9 g/dL (3.5-5.0); Alkaline Phosphatase 79 U/L (38-126); Anion Gap 10 mmol/L; Blood Urea Nitrogen 13 mg/dL (9-20); Calcium 9.5 mg/dL (8.4-10.2); Carbon Dioxide 26 mmol/L (22-30); Chloride 104 mmol/L (98-107); Glucose 99 mg/dL (74-99); Non-African American GFR(CKD) >90 (>60 ml/min/1.73 sqM); Potassium 4.1 mmol/L (3.5-5.1); Sodium 140 mmol/L (137-145); Total Protein 8.1 g/dL (6.3-8.2)
[2024-06-30] MEDS: CEPHALEXIN 500 MG CAP PO STA (22:15)
[2024-06-30] MEDS: SULFAMETHOX-TMP 800-160MG 1 EACH TAB PO STA (22:15)
[2024-06-30 22:20] VITALS: BP 138/78; PULSE 64
== END 2024-06-30 22:30 | disposition home or self-care (01) ==
LOC: EC 19:54
DX: K13.0 Diseases of lips (principal); F17.200 Nicotine dependence, unspecified, uncomplicated
CPT/HCPCS: 36415; 80053; 83605; 85025; 99283

== ENCOUNTER 2024-07-02 21:46 | Emergency (ER) | payer OTHER ==
[2024-07-02 21:50] VITALS: TEMP 97.9
[2024-07-02] MEDS: KETOROLAC 15 MG/ML 1 ML VIAL IVP STA (22:13)
--- NOTE | 2024-07-02 22:27 | ED ---
ENT HPI - General Source: patient, RN notes reviewed, old records reviewed Mode of arrival: ambulatory Limitations: no limitations <Suzanne Bruce - Last Filed: 07/02/24 23:50> <Jessica Beyer - Last Filed: 07/03/24 02:45> - General Chief complaint: ENT Stated complaint: face swelling Time Seen by Provider: 07/02/24 22:23 - History of Present Illness Initial comments: 33-year-old male presented to ER with a chief complaint of lower lip edema. Patient states approximately 1 week ago he had a cut on his chin which has healed. Approximately 1 to 2 days prior to lip edema starting he popped a pimple in the same area. He was seen here 2 days prior and started on Keflex and Bactrim for cellulitis. He states since then he has had an increase in pain and swelling to that area. He does notice some purulent drainage to the outside aspect that started last night. He states he has been having mild pain with swallowing and unable to eat. He denies any difficulty breathing or handling secretions. Patient denies any fevers but does states he has been mildly chill. He has been taking [id number] medications for pain control at this time. (Suzanne Bruce) - Related Data Previous Rx's Medication Instructions Recorded Albuterol Inhaler [Ventolin Hfa 1 - 2 puff INHALATION Q6HR PRN #1 10/20/17 Inhaler] inhaler Ibuprofen [Motrin] 600 mg PO Q8HR PRN #15 tab 10/20/17 Ibuprofen [Motrin] 600 mg PO Q6HR PRN #40 day 07/18/18 Ketoconazole [Ketoconazole 2%] 1 applic TOPICAL BID #1 tube 07/18/18 Ondansetron Odt [Zofran Odt] 4 mg PO Q8HR PRN #20 tab 04/29/23 Cephalexin [Keflex] 500 mg PO Q6HR 10 Days #40 cap 06/30/24 Sulfamethox-Tmp 800-160Mg [Bactrim 1 tab PO Q12HR #20 tab 06/30/24 DS 800-160 mg] Allergies Allergy/AdvReac Type Severity Reaction Status Date / Time No Known Allergies Allergy Verified 07/02/24 21:50 Review of Systems ROS Other: All systems not noted in ROS Statement are negative. <Suzanne Bruce - Last Filed: 07/02/24 23:50> ROS Other: All systems not noted in ROS Statement are negative. <Pepito P - Last Filed: 07/03/24 02:45> ROS Statement: Those systems with pertinent positive or pertinent negative responses have been documented in the HPI. Past Medical History Additional Past Medical History / Comment(s): chronic migraines and nausea, back pain History of Any Multi-Drug Resistant Organisms: None Reported Past Surgical History: No Surgical Hx Reported Past Psychological History: No Psychological Hx Reported Smoking Status: Current every day smoker Past Alcohol Use History: None Reported Past Drug Use History: Marijuana <Suzanne Bruce - Last Filed: 07/02/24 23:50> General Exam Limitations: no limitations General appearance: alert, in no apparent distress ENT exam: Present: mucous membranes moist, other (Left lower lip edema. There are 2 pinpoint purulent papules to chin oropharynx patent.) Neck exam: Present: normal inspection, lymphadenopathy (Left submandibular). Absent: tenderness, meningismus Respiratory exam: Present: normal lung sounds bilaterally. Absent: respiratory distress, wheezes, rales, rhonchi, stridor Cardiovascular Exam: Present: regular rate, normal rhythm, normal heart sounds. Absent: systolic murmur, diastolic murmur, rubs, gallop, clicks Neurological exam: Present: alert, oriented X3, CN II-XII intact Skin exam: Present: warm, dry, intact, normal color. Absent: rash <Suzanne Bruce - Last Filed: 07/02/24 23:50> Course <Suzanne Bruce - Last Filed: 07/02/24 23:50> Vital Signs 07/02/24 07/02/24 07/02/24 21:48 21:57 23:20 Temperature 97.9 F Pulse Rate 133 H 88 91 Respiratory 20 19 17 Rate Blood Pressure 140/87 130/91 129/91 O2 Sat by Pulse 98 98 99 Oximetry - Reevaluation(s) Reevaluation #1: 07/02/24 23:43 Jenniferlouie Aquino excepted without speaking to provider. Accepting physician . (Suzanne Bruce) Medical Decision Making - Lab Data Result diagrams: 07/02/24 22:13 07/02/24 22:13 - Radiology Data Radiology results: report reviewed, image reviewed <TeoSuzanne - Last Filed: 07/02/24 23:50> - Lab Data Result diagrams: 07/02/24 22:13 07/02/24 22:13 <Pepito P - Last Filed: 07/03/24 02:45> - Medical Decision Making Was pt. sent in by a medical professional or institution (, PA, MMI TEACHER, urgent care, hospital, or senior care...) When possible be specific @ -No Did you speak to anyone other than the patient for history (EMS, parent, family, police, friend...)? What history was obtained from this source @ -No Did you review nursing and triage notes (agree or disagree)? Why? @ -I reviewed and agree with nursing and triage notes Were old charts reviewed (outside hosp., previous admission, EMS record, old EKG, old radiological studies, urgent care reports/EKG's, senior care records)? Report findings @ -Yes, I reviewed ER visit from 06-30-2024 where patient was seen here diagnosed with cellulitis and started on Bactrim and Keflex. Differential Diagnosis (chest pain, altered mental status, abdominal pain women, abdominal pain men, vaginal bleeding, weakness, fever, dyspnea, syncope, headache, dizziness, GI bleed, back pain, seizure, CVA, palpatations, mental health, musculoskeletal)? @ -Franklyn angina, abscess, angioedema... This list is not meant to be all- inclusive EKG interpreted by me (3pts min.). @ -None done X-rays interpreted by me (1pt min.). @ -None done CT interpreted by me (1pt min.). @ -CT soft tissue neck suggesting soft tissue density obscuring the vallecula and piriform sinuses. Epiglottis is not well-seen. Hypopharyngeal airway into the proximal trachea below is unremarkable. Marked heterogeneous swelling of the lower lip and associated mild to moderate fat stranding extending inferiorly slightly more prominent along the left aspect. U/S interpreted by me (1pt. min.). @ -None done What testing was considered but not performed or refused? (CT, X-rays, U/S, labs)? Why? @ -None What meds were considered but not given or refused? Why? @ -None Did you discuss the management of the patient with other professionals (professionals i.e. DrCailin, PA, MMI TEACHER, lab, RT, psych nurse, manager social, catapult and arresting gear officer, teacher, chief medical officer, bilingual case manager)? Give summary @ -school attendance secretary discussed case with Jennifer Aquino who auto excepted without speaking with provider. Accepting physician Dr. Galvez. Was smoking cessation discussed for >3mins.? @ -No Was critical care preformed (if so, how long)? @ -No Were there social determinants of health that impacted care today? How? (Homelessness, low income, unemployed, alcoholism, drug addiction, transportation, low edu. Level, literacy, decrease access to med. care, fci, rehab)? @ -No Was there de-escalation of care discussed even if they declined (Discuss DNR or withdrawal of care, Hospice)? DNR status @ -No What co-morbidities impacted this encounter? (DM, HTN, Smoking, COPD, CAD, Cancer, CVA, ARF, Chemo, Hep., AIDS, mental health diagnosis, sleep apnea, morbid obesity)? @ -Former smoker quit 8 years ago. Was patient admitted / discharged? Hospital course, mention meds given and route, prescriptions, significant lab abnormalities, going to OR and other pertinent info. @ -Transferred. 33-year-old male presented to ER with a chief complaint of lip edema. Patient was seen here 2 days prior and diagnosed with cellulitis started on Bactrim and Keflex. Patient returning due to increase of pain. Upon rooming in my evaluation history and physical exam completed. Vitals upon examination stable. Patient in no signs of acute distress. Patient speaking in full sentences with no difficulty breathing. There is significant edema to lower lip. No tongue or oropharynx edema present. Laboratory studies were obtained along with CT soft tissue neck. Laboratory studies showing an leukocytosis of 12.8 with a left shift. CMP unremarkable. CRP 4.0. Procalcitonin pending. CT soft tissue neck showing some fullness of the tongue which could reflect swelling versus timing of imaging. Epiglottis is not well-seen and there is suggestion of soft tissue density obscuring the vallecula and piriform sinus. Due to concern of airway obstruction transfer was considered to Jennifer Aquino for ENT consultation. Jennifer Aquino accepted without speaking to provider. Accepting physician Dr. Galvez. Patient given 15 mg IV Toradol, 10 mg IV Decadron and started on Unasyn. Blood cultures obtained. Upon transfer, patient talking and protection his own airway, no signs of respiratory distress. Patient will be transported to [facility] via EMS in stable condition for further evaluation and treatment. Patient is agreeable. Case discussed with ED attending, Dr. Beyer. Undiagnosed new problem with uncertain prognosis? @ -No Drug Therapy requiring intensive monitoring for toxicity (Heparin, Nitro, Insulin, Cardizem)? @ -No Were any procedures done? @ -No Diagnosis/symptom? @ -Lip edema rule out airway obstruction Acute, or Chronic, or Acute on Chronic? @ -Acute Uncomplicated (without systemic symptoms) or Complicated (systemic symptoms)? @ -Complicated Side effects of treatment? @ -No Exacerbation, Progression, or Severe Exacerbation? @ -No Poses a threat to life or bodily function? How? (Chest pain, [place], HI, pneumonia, PE, COPD, DKA, ARF, appy, cholecystitis, CVA, Diverticulitis, Homicidal, Suicidal, threat to staff... and all critical care pts) @ -Yes, airway obstruction can be life-threatening. (Suzanne Bruce) Personally saw and evaluated this patient. CT scan was quite concerning reading with no visible airway noted however on evaluation the patient has no signs of airway obstruction no stridor no difficulty speaking or swallowing. Uncertain if perhaps the CT scan was taken while he was swallowing or moving his throat but the images are not consistent with what we are seeing clinically I do not feel there is indication for emergent intubation. Did advise the patient needs to be transferred to facility that has ENT and OMFS available for evaluation as well as likely infectious disease. Patient was agreeable to transfer. (Jessica Beyer) - Lab Data Lab Results 07/02/24 07/02/24 07/02/24 Range/Units 22:13 22:13 22:13 WBC 12.8 H (3.8-10.6) k/uL RBC 5.72 (4.30-5.90) m/uL Hgb 16.4 (13.0-17.5) gm/dL Hct 46.9 (39.0-53.0) % MCV 82.0 (80.0-100.0) fL MCH 28.6 (25.0-35.0) pg MCHC 34.9 (31.0-37.0) g/dL RDW 11.9 (11.5-15.5) % Plt Count 304 (150-450) k/uL MPV 7.5 Neutrophils % 80 % Lymphocytes % 10 % Monocytes % 7 % Eosinophils % 1 % Basophils % 0 % Neutrophils # 10.3 H (1.3-7.7) k/uL Lymphocytes # 1.3 (1.0-4.8) k/uL Monocytes # 0.9 (0-1.0) k/uL Eosinophils # 0.2 (0-0.7) k/uL Basophils # 0.0 (0-0.2) k/uL Sodium 137 (137-145) mmol/L Potassium 3.9 (3.5-5.1) mmol/L Chloride 105 (98-107) mmol/L Carbon Dioxide 20 L (22-30) mmol/L Anion Gap 12 mmol/L BUN 16 (9-20) mg/dL Creatinine 0.79 (0.66-1.25) mg/dL Est GFR (CKD-EPI)AfAm >90 (>60 ml/min/1.73 sqM) Est GFR (CKD-EPI)NonAf >90 (>60 ml/min/1.73 sqM) Glucose 107 H (74-99) mg/dL Plasma Lactic Acid Alek 1.5 (0.7-2.0) mmol/L Calcium 9.6 (8.4-10.2) mg/dL Total Bilirubin 1.2 (0.2-1.3) mg/dL AST 18 (17-59) U/L ALT 14 (4-49) U/L Alkaline Phosphatase 95 (38-126) U/L C-Reactive Protein (<1.0) mg/dL Total Protein 8.2 (6.3-8.2) g/dL Albumin 4.9 (3.5-5.0) g/dL 07/02/24 Range/Units 22:13 WBC (3.8-10.6) k/uL RBC (4.30-5.90) m/uL Hgb (13.0-17.5) gm/dL Hct (39.0-53.0) % MCV (80.0-100.0) fL MCH (25.0-35.0) pg MCHC (31.0-37.0) g/dL RDW (11.5-15.5) % Plt Count (150-450) k/uL MPV Neutrophils % % Lymphocytes % % Monocytes % % Eosinophils % % Basophils % % Neutrophils # (1.3-7.7) k/uL Lymphocytes # (1.0-4.8) k/uL Monocytes # (0-1.0) k/uL Eosinophils # (0-0.7) k/uL Basophils # (0-0.2) k/uL Sodium (137-145) mmol/L Potassium (3.5-5.1) mmol/L Chloride (98-107) mmol/L Carbon Dioxide (22-30) mmol/L Anion Gap mmol/L BUN (9-20) mg/dL Creatinine (0.66-1.25) mg/dL Est GFR (CKD-EPI)AfAm (>60 ml/min/1.73 sqM) Est GFR (CKD-EPI)NonAf (>60 ml/min/1.73 sqM) Glucose (74-99) mg/dL Plasma Lactic Acid Alek (0.7-2.0) mmol/L Calcium (8.4-10.2) mg/dL Total Bilirubin (0.2-1.3) mg/dL AST (17-59) U/L ALT (4-49) U/L Alkaline Phosphatase (38-126) U/L C-Reactive Protein 4.0 H (<1.0) mg/dL Total Protein (6.3-8.2) g/dL Albumin (3.5-5.0) g/dL Disposition Time of Disposition: 23:48 - Out of Hospital Transfer - Req. Specs Out of Hospital Transfer - Requested Specifics: Other Emergency Center ([facility]) <Suzanne Bruce - Last Filed: 07/02/24 23:50> <Jessica Beyer - Last Filed: 07/03/24 02:45> Clinical Impression: Lip edema Disposition: OTHER INSTITUTION NOT DEFINED Condition: Stable Referrals: Lamberto Albert MD [Primary Care Provider] - 1-2 days
[2024-07-02 22:34] LABS: Basophils % (A) 0 %; Eosinophils # (A) 0.2 k/uL (0-0.7); Eosinophils % (A) 1 %; HCT 46.9 % (39.0-53.0); HGB 16.4 gm/dL (13.0-17.5); Lymphocytes # (A) 1.3 k/uL (1.0-4.8); Lymphocytes % (A) 10 %; MCH 28.6 pg (25.0-35.0); MCHC 34.9 g/dL (31.0-37.0); Mean Platelet Volume 7.5; Monocytes # (A) 0.9 k/uL (0-1.0); Monocytes % (A) 7 %; Neutrophils # (A) 10.3 k/uL (1.3-7.7); Neutrophils % (A) 80 %; Platelet Count 304 k/uL (150-450); RBC 5.72 m/uL (4.30-5.90); RDW 11.9 % (11.5-15.5); WBC 12.8 k/uL (3.8-10.6)
[2024-07-02 22:47] LABS: ALT 14 U/L (4-49); AST 18 U/L (17-59); African American GFR (CKD) >90 (>60 ml/min/1.73 sqM); Albumin 4.9 g/dL (3.5-5.0); Alkaline Phosphatase 95 U/L (38-126); Anion Gap 12 mmol/L; Blood Urea Nitrogen 16 mg/dL (9-20); Calcium 9.6 mg/dL (8.4-10.2); Carbon Dioxide 20 mmol/L (22-30); Chloride 105 mmol/L (98-107); Glucose 107 mg/dL (74-99); Non-African American GFR(CKD) >90 (>60 ml/min/1.73 sqM); Potassium 3.9 mmol/L (3.5-5.1); Sodium 137 mmol/L (137-145); Total Bilirubin 1.2 mg/dL (0.2-1.3); Total Protein 8.2 g/dL (6.3-8.2)
--- NOTE | 2024-07-02 22:49 | CT ---
EXAMINATION TYPE: CT soft tissue neck w con DATE OF EXAM: 07/02/2024 HISTORY: pt states he had some swelling and redness to lower lip for a few days and now has severe sw elling to lip with drainage. COMPARISON: NONE CT DLP: 195.5 mGycm. Automated Exposure Control for Dose Reduction was Utilized. TECHNIQUE: CT scan of the neck is performed with IV Contrast, patient injected with 100 mL of Isovue 300, axial images are obtained, coronal and sagittal reformatted images are reviewed. FINDINGS: Airway: Some fullness of the tongue could reflect timing of imaging versus swelling , correlate clini chucky. Vessels causing significant narrowing of the nasopharyngeal airway. No patent oropharyngeal ai rway is seen. Epiglottis is not well seen, there is suggestion of soft tissue density obscuring the vallecula and t he piriform sinuses. This is best seen at level of the vocal cords near axial image 32 where a patent airway cannot be seen. Hypopharyngeal airway into the proximal trachea below this is unremarkable. Thyroid gland is within n ormal limits. Visualized upper lungs are clear. Marked heterogeneous swelling of the lower lip with associated mild to moderate fat stranding extendi ng inferiorly slightly more prominent along the left aspect. Some reactive but subcentimeter bilatera l submandibular lymph nodes are seen. No well-formed fluid collection or drainable abscess is seen. Parotid/submandibular glands: Asymmetric smaller size right submandibular gland. Parotid glands symme tric and within normal limits. Carotid/Vascular Structures: No significant abnormality. Osseous Structures: No significant abnormality. Other: There is small mucous retention cyst or polyp in the inferior left maxillary sinus axial image 60. Similar finding right ethmoid sinusitis image 71. IMPRESSION: Abnormal study as detailed above. Cannot exclude mass or neoplasm at level of the vocal c ords. Advise ENT evaluation. [facility], , 07/02/2024 10:47 PM
[2024-07-02] MEDS: DEXAMETHASONE SOD PHOSPHATE 10 MG/ML 1 ML VIAL IVP STA (23:13)
[2024-07-02] MEDS: AMPICILLIN-SULBACTAM 3 GM in SODIUM CHLORIDE 0.9% 100 ML IVPB STA (23:16)
[2024-07-02 23:21] VITALS: BP 129/91; PULSE 91; RESP 17
== END 2024-07-03 00:20 | disposition other institution (70) ==
LOC: EC 21:46
DX: R22.0 Localized swelling, mass and lump, head (principal); F17.200 Nicotine dependence, unspecified, uncomplicated
CPT/HCPCS: 36415; 80053; 83605; 85025; 86140; 87040; 84145; 70491; 99285; 96365; 96375 ×2; J1100; J0295; J1885; Q9967